=== PATIENT | male | born 1965 | race Caucasian/White ===

== ENCOUNTER 2016-05-23 06:33 | Day surgery (SDC) | payer OTHER ==
[2016-05-22 11:48] VITALS: BMI 40.0
[~2016-05-23] VITALS: Ht 175.3 cm; Wt 119.0 kg
[2016-05-23] VITALS (8 sets, daily range): BP systolic 96–165; BP diastolic 68–105; PULSE 74–99; RESP 18–25; Ht 175.3 cm; Wt 119.0 kg
[~2016-05-23 06:33] MED LIST: CEFAZOLIN 2 GM/50 ML (PMX) 50 ML IVPB ONE; SOD CHLORIDE 0.9% 1,000 ML IV SCH
[2016-05-23] MEDS ORDERED: AMLO-147 PO (07:14)
[2016-05-23] MEDS ORDERED: BENA20TA48 PO (07:14)
[2016-05-23] MEDS ORDERED: MELO-110 PO (07:14)
[2016-05-23] MEDS ORDERED: ASPI-664 PO (07:15)
--- NOTE | 2016-05-23 07:49 | RADRPT ---
PROCEDURE: XR Chest. CLINICAL INDICATION: Preoperative evaluation prior to general anesthesia TECHNIQUE: Portable single view of the chest COMPARISON: None. FINDINGS: The cardiomediastinal silhouette appears within normal limits. The lungs are clear and no pleural e ffusion or significant edema is seen. No bony abnormality is seen. IMPRESSION: No definite acute pulmonary disease. RPTAT: [facility] Physician Patrice Date Time Electronically viewed and signed by Erlinda Morris Physician on 05/23/2016 07:49 LE/
[2016-05-23] MEDS ORDERED: LIDOCAINE 2% (SDV) 5 ML INJ ONE (07:58)
[2016-05-23] MEDS ORDERED: PROPOFOL 20 ML ONE (07:58)
[2016-05-23] MEDS ORDERED: CEFAZOLIN 1 GM INJ ONE (07:58)
[2016-05-23] MEDS ORDERED: MIDAZOLAM 1 MG/ML 2 ML INJ ONE (07:59)
[2016-05-23] MEDS ORDERED: FENTAnyl 50 MCG/ML VIAL ONE (07:59)
[2016-05-23] MEDS ORDERED: BUPIVACAINE 0.25% (MPF) 30 ML INJ ONE (08:30)
[2016-05-23] MEDS ORDERED: METOCLOPRAMIDE 10 MG INJ ONE (08:49)
[2016-05-23] MEDS ORDERED: ONDANSETRON 4 MG INJ ONE (08:49)
[2016-05-23] MEDS ORDERED: PHENYLephrine (100 MCG/ML) 5ML SYG ONE (09:02)
[2016-05-23] MEDS ORDERED: HYDROmorphONE (0.2 MG/ML) 10ML SYG IV PRN ×2 (09:30)
[2016-05-23] MEDS ORDERED: HYDROCODONE/APAP (5/325) TAB PO ONE (09:30)
[2016-05-23] MEDS ORDERED: DIPHENHYDRAMINE 50 MG INJ IV PRN (09:30)
[2016-05-23] MEDS ORDERED: hydrALAzine 20 MG INJ IV PRN (09:30)
[2016-05-23] MEDS ORDERED: LABETALOL HCL 20MG INJ IV PRN (09:30)
[2016-05-23] MEDS ORDERED: FENTAnyl 50 MCG/ML VIAL IV PRN (09:30)
[2016-05-23] MEDS ORDERED: OXYCODONE/ACETAMINOPHEN (5/325) TAB PO PRN ×2 (09:30)
[2016-05-23] MEDS ORDERED: MEPERIDINE 25 MG INJ IV PRN (09:30)
[2016-05-23] MEDS ORDERED: PROCHLORPERAZINE 10 MG INJ IV PRN (09:30)
[2016-05-23] MEDS ORDERED: ONDANSETRON 4 MG INJ IV PRN (09:30)
[2016-05-23] MEDS ORDERED: METOCLOPRAMIDE 10 MG INJ IV PRN (09:30)
--- NOTE | 2016-05-23 10:06 | OPR ---
DATE OF OPERATION: 05/23/2016 INDICATIONS: This is a 50-year-old male with a right hydrocele. He requests surgical repair. Risk s, alternatives, benefits, and personnel were discussed with the patient. The patient expressed his understanding and consents to the operation. PREOPERATIVE DIAGNOSIS: Right hydrocele. POSTOPERATIVE DIAGNOSIS: Right hydrocele. OPERATION PERFORMED: Right hydrocelectomy. SURGEON: Mansi Lynn MD SPECIMEN: Right hydrocele sac. COMPLICATIONS: None. ANESTHESIA: General. DESCRIPTION OF PROCEDURE: The patient was taken to the OR, prepped and draped in the usual sterile fashion. Surgical timeout was performed. IV antibiotics were given. Longitudinal incision is mad e over the right scrotum over the hydrocele with a 15 blade. Dissection cautery was carried down to the sac. The sac is opened carefully and the clear liquid contents are suctioned out. The sac is excised with cautery. There is good hemostasis. The remaining remnant of the sac is then marsupial ized with interrupted 3-0 Vicryl. The skin is then closed with interrupted 3-0 Vicryl and running 4 -0 Monocryl. Local anesthesia was injected and dry dressings were applied. Dictated By: MANSI LIND/JAMAL Conf#: [id number] DID#: [id number]
--- NOTE | 2016-05-23 20:50 | RADRPT ---
Vent Rate: 83 bpm RR Interval: 0 msec UT Interval: 154 msec QRS Duration: 92 msec QT Interval: 392 msec QTC Interval: 460 msec P-R-T Spring: 54 - 47 - 84 degrees Normal sinus rhythm Nonspecific T wave abnormality Prolonged QT Abnormal ECG Electronically Signed By: Reji Luciano [id number]
== END 2016-05-23 10:38 | disposition home or self-care (01) ==
LOC: SDS 06:33
PROVIDERS: ATTEND Surgery
DX: N43.3 Hydrocele, unspecified (principal); I12.9 Hypertensive chronic kidney disease with stage 1 through stage 4 chronic kidney disease, or unspecified chronic kidney disease; N18.1 Chronic kidney disease, stage 1; E66.9 Obesity, unspecified; Z68.38 Body mass index [BMI] 38.0-38.9, adult
CPT/HCPCS: 55500; 71010; 88302; 93005; J0690; J2250; J2370; J2405; J2765; J3010; Z7512; Z7610

== ENCOUNTER 2018-02-14 17:46 | Emergency (ER) | END 2018-02-14 20:21 | disposition home or self-care (01) ==

== ENCOUNTER 2018-06-14 14:25 | Emergency (ER) | payer OTHER ==
[~2018-06-14] VITALS: Wt 142.0 kg
[~2018-06-14 14:25] MED LIST changes: +AMLO-147 PO; +ASPI81TA52 PO; +BEN25 PO; +BENA20TA4 PO; +BETA45CR3 TOP; -CEFAZOLIN 2 GM/50 ML (PMX) 50 ML IVPB ONE; +MED4DP PO; +MELO15TA30 PO; -SOD CHLORIDE 0.9% 1,000 ML IV SCH
[2018-06-14 14:28] VITALS: BP 144/82; PULSE 72; RESP 19
[2018-06-14] MEDS ORDERED: CLOT30CR24 TOP (17:26)
[2018-06-14] MEDS ORDERED: DOXY100T20 PO (17:26)
[2018-06-14] MEDS ORDERED: BETA50CR5 TP (17:26)
--- NOTE | 2018-06-14 17:29 | ERD ---
ER Documentation Chief Complaint Chief Complaint bib self, cc: rash on groin area, needs refill for medication HPI 52-year-old male presents requesting a refill for a rash in his groin area. He has had this rash intermittently for the last few months. He states that it improved with betamethasone prescribed during previous visit. Denies any penile discharge, fevers. Denies history of diabetes. ROS All systems reviewed and are negative except as per history of present illness. Medications Home Meds Active Scripts Doxycycline Hyclate* (Doxycycline Hyclate*) 100 Mg Tablet.dr, 100 MG PO BID for 10 Days, TAB Prov:STANFORD CARMONA MD 06/14/18 Clotrimazole* (Clotrimazole* AF) 1% - 30 Gm Cream.gm., 1 APPLIC TOP BID for 7 Days, TUB Prov:STANFORD CARMONA MD 06/14/18 Betamet Diprop/Prop Gly (Betamethasone Dp 0.05% Crm) 50 Gm Cream.gm., 50 GM TP BID for 7 Days Prov:STANFORD CARMONA MD 06/14/18 Betamethasone Dipropionate* (Betamethasone Dipropionate*) 0.05% - 45 Gm Cream.gm., 1 APPLIC TOP BID for 7 Days, #1 TUB Prov:BELLA,CLEMENTINE 02/14/18 Diphenhydramine Hcl* (Benadryl*) 25 Mg Cap, 25 MG PO Q6 for pruritis , #30 CAP Prov:BELLA,CLEMENTINE 02/14/18 Methylprednisolone* (Medrol* DOSE PACK) 4 Mg/Dose-Pack Tab.ds.pk, 4 MG PO . DIRECTED for 1 Day, PACKET Prov:BELLA,CLEMENTINE 02/14/18 Reported Medications Aspirin (Low Dose Aspirin) 81 Mg Tablet.dr, 81 MG PO DAILY, #30 TAB 05/23/16 Amlodipine Besylate* (Amlodipine Besylate*) 10 Mg Tablet, 10 MG PO DAILY, #30 TAB 05/23/16 Benazepril Hcl* (Benazepril Hcl*) 20 Mg Tablet, 20 MG PO DAILY, #30 TAB 05/23/16 Meloxicam* (Mobic*) 15 Mg Tablet, 15 MG PO DAILY, #30 TAB 2/16/17 Allergies Allergies: Coded Allergies: No Known Allergy (Unverified , 05/23/16) PMhx/Soc History of Surgery: Yes (right wrist nerve surgery) Anesthesia Reaction: No Hx Neurological Disorder: No Hx Respiratory Disorders: No Hx Cardiac Disorders: Yes (HTN) Hx Psychiatric Problems: No Hx Miscellaneous Medical Probl: Yes (hep C) Hx Alcohol Use: Yes Hx Substance Use: No Hx Tobacco Use: Yes FmHx Family History: No diabetes, No coronary disease, No other Physical Exam Vitals Vital Signs Date Temp Pulse Resp B/P (MAP) Pulse Ox O2 O2 Flow FiO2 Time Delivery Rate 06/14/18 98.2 72 19 144/82 100 14:28 (102) Physical Exam Const: No acute distress Head: Atraumatic Eyes: Normal Conjunctiva ENT: Normal External Ears, Nose and Mouth. Neck: Full range of motion. No meningismus. Resp: Clear to auscultation bilaterally Cardio: Regular rate and rhythm, no murmurs Abd: Soft, non tender, non distended. Normal bowel sounds Skin: No petechiae or purpura. Maculopapular rash with small pustules at the mons pubis and folds of the groin. No induration or streaking. Back: No midline or flank tenderness Ext: No cyanosis, or edema Neur: Awake and alert Psych: Normal Mood and Affect Procedures/MDM Patient presents with nonspecific dermatitis of the groin area. He does have signs of possible folliculitis. Although history and location also is suggest tinea crura's. Will treat with betamethasone by request although patient advised to limit use to prevent atrophy. He should stop when the rash resolves. We will add doxycycline for findings of hair folliculitis as well. There is no findings of cellulitis and no signs to suggest Nathaly's gangrene, torsion, additional complications of presenting complaints. The patient was stable with no new complaints during the ER course. Clinically, there is no current evidence to suggest meningitis, sepsis, acute abdomen, pneumonia, stroke, acute coronary syndrome, pulmonary embolism, aortic dissection or any other emergent condition appearing to require further evaluation or hospitalization. Patient counseled regarding my diagnostic impression and care plan. Prior to discharge all questions answered. Pt agrees with treatment plan and understands strict return precautions. Pt is instructed to follow up with primary care provider within 24- 48 hours. Precautionary instructions provided including instructions to return t o the ER if not improving or for any worsening or changing symptoms or concerns. Departure Diagnosis: Primary Impression: Folliculitis Additional Impression: Rash Condition: Stable Patient Instructions: Dermatitis, Non-Specific, Folliculitis Additional Instructions: We will treat for bacterial infection as well as fungal infection. Recheck for new or worsening symptoms with primary doctor. STANFORD CARMONA MD Jun 14, 2018 17:29
== END 2018-06-14 17:51 | disposition home or self-care (01) ==
LOC: FTE 14:25
DX: L73.9 Follicular disorder, unspecified (principal); I10 Essential (primary) hypertension; Z76.0 Encounter for issue of repeat prescription; Z79.82 Long term (current) use of aspirin; Z87.891 Personal history of nicotine dependence
CPT/HCPCS: 99283